=== PATIENT | male | born 1960 | race Caucasian/White ===

== ENCOUNTER 2019-02-27 09:40 | Outpatient (CLI) | payer OTHER ==
[2019-02-27] MEDS ORDERED: DIPH25CA61 PO (10:33)
== END 2019-02-27 23:59 | disposition home or self-care (01) ==
LOC: STAR 09:40
PROVIDERS: ATTEND Surgery
DX: Z02.9 Encounter for administrative examinations, unspecified (principal)

== ENCOUNTER 2019-03-15 05:57 | Inpatient (IN) | payer OTHER ==
[2019-02-27 10:35] VITALS: BP 127/78
[~2019-03-15] VITALS: Ht 185.4 cm; Wt 116.5 kg
[~2019-03-15 05:57] MED LIST: DIPH25CA61 PO
[2019-03-15] MEDS ORDERED: LACTATED RINGERS 1,000 ML IV SCH (06:34)
[2019-03-15] MEDS ORDERED: BUPIVACAINE/EPI 0.5% 1:200K ONE (06:47)
[2019-03-15 07:30] LABS: BASOPHILS # (AUTO) 0.02 x10^3/uL (0-0.1); BASOPHILS % (AUTO) 0 % (0-1); EOSINOPHILS # (AUTO) 0.32 x10^3/uL (0-0.4); EOSINOPHILS % (AUTO) 5 % (1-7); LYMPHOCYTES # (AUTO) 1.86 x10^3/uL (1-3.4); LYMPHOCYTES % (AUTO) 29 % (22-44); MD NO; MEAN CORPUSCULAR HEMOGLOBIN 31.1 pg (27.5-34.5); MEAN CORPUSCULAR HGB CONC 34.1 g/dL (33.2-36.2); MEAN CORPUSCULAR VOLUME 91.3 fL (81-97); MEAN PLATELET VOLUME 8.2 fL (7.4-10.4); MONOCYTES # (AUTO) 0.53 x10^3/uL (0.2-0.8); MONOCYTES % (AUTO) 8 % (2-9); NEUTROPHILS # (AUTO) 3.76 x10^3/uL (1.8-6.8); NEUTROPHILS % (AUTO) 58 % (42-75); PLATELET COUNT 228 x10^3/uL (130-400); RED BLOOD COUNT 5.44 x10^6/uL (4.38-5.82); RED CELL DISTRIBUTION WIDTH 13.5 % (9.4-14.8)
[2019-03-15 07:41] LABS: INTERNATIONAL NORMALIZED RATIO 1.04 (0.93-1.1); PROTHROMBIN TIME 10.9 Seconds (9.6-11.5)
[2019-03-15] MEDS ORDERED: FAMOTIDINE 20 MG TABLET PO STA (08:00)
[2019-03-15] MEDS ORDERED: GABAPENTIN 300 MG CAPSULE PO STA (08:00)
[2019-03-15] MEDS ORDERED: OXYcodone IR 5MG TABLET PO STA (08:00)
[2019-03-15] MEDS ORDERED: FENTANYL PF 250 MCG/5ML ONE (08:01)
[2019-03-15] MEDS ORDERED: MIDAZOLAM 1 MG/ML, 2ML ONE (08:02)
[2019-03-15] MEDS ORDERED: FAMOTIDINE 20 MG TABLET ONE (08:02)
[2019-03-15] MEDS ORDERED: OXYcodone IR 5MG TABLET ONE (08:02)
[2019-03-15] MEDS ORDERED: PROPOFOL 10 MG/ML, 20ML ONE ×2 (08:02)
[2019-03-15] MEDS ORDERED: GABAPENTIN 300 MG CAPSULE ONE (08:03)
[2019-03-15] MEDS ORDERED: ACETAMINOPHEN 500 MG TABLET ONE (08:07)
[2019-03-15] MEDS ORDERED: ACETAMINOPHEN 500 MG TABLET PO STA (08:08)
[2019-03-15] MEDS ORDERED: GLYCOPYRROLATE 0.2MG/1ML, 5ML ONE (08:12)
[2019-03-15] MEDS ORDERED: ONDANSETRON 2MG/ML, 2ML ONE (08:12)
[2019-03-15] MEDS ORDERED: DEXAMETHASONE 4 MG/ML, 1ML ONE (08:12)
[2019-03-15] MEDS ORDERED: SUCCINYLCHOLINE 20 MG/ML, 10ML ONE (08:12)
[2019-03-15] MEDS ORDERED: NEOSTIGMINE 1 MG/ML, 10ML ONE (08:12)
[2019-03-15] MEDS ORDERED: CEFAZOLIN 1,000 MG ONE (08:12)
[2019-03-15] MEDS ORDERED: ROCURONIUM 10 MG/ML,10ML ONE (08:12)
[2019-03-15] MEDS ORDERED: KETAMINE 10 MG/ML, 20ML ONE (08:50)
[2019-03-15] MEDS ORDERED: morphine SULFATE 10 MG/ML, 1ML ONE (09:41)
[2019-03-15] MEDS ORDERED: HYDROmorphone 1 MG/ML, 1ML VIAL ONE (10:11)
[2019-03-15] MEDS ORDERED: OXYcodone 5 MG/5 ML ORAL.SOL UDC ONE (10:11)
[2019-03-15] MEDS: FENTANYL PF 100 MCG/2ML IV PRN ×2 (10:15→10:50)
[2019-03-15] MEDS: HYDROmorphone 2 MG/ML, 1ML IVPush PRN ×6 (10:18→20:44)
[2019-03-15] MEDS ORDERED: FENTANYL PF 100 MCG/2ML ONE (10:19)
[2019-03-15] MEDS ORDERED: OXYcodone 5 MG/5 ML ORAL.SOL UDC PO PRN (10:30)
[2019-03-15] MEDS ORDERED: PROMETHAZINE 25 MG/ML, 1ML IV PRN (10:30)
[2019-03-15] MEDS ORDERED: DIAZEPAM 5 MG TABLET ONE (10:56)
[2019-03-15] MEDS ORDERED: DIAZEPAM 5 MG TABLET PO ONE (11:00)
[2019-03-15 11:45] VITALS: BP 134/85
[2019-03-15] MEDS ORDERED: HYDROmorphone 2 MG/ML, 1ML ONE (12:37)
[2019-03-15] MEDS ORDERED: morphine SULFATE 10 MG/ML, 1ML IV PRN (13:00)
[2019-03-15] MEDS ORDERED: OXYcodone/APAP 5/325MG TABLET PO PRN (13:00)
[2019-03-15 13:17] VITALS: BP 115/79
[2019-03-15] MEDS: POTASSIUM CHLORIDE 20 MEQ in LACTATED RINGERS 1,000 ML IV SCH (16:21)
[2019-03-15] MEDS: CEFAZOLIN PMX 1GM/50ML 50 ML IVPB SCH (16:22)
[2019-03-15] MEDS: DIAZEPAM 5 MG/ML, 2ML IV PRN ×2 (18:49→22:10)
[2019-03-15 19:41] VITALS: BP 147/94
[2019-03-15] MEDS: ONDANSETRON 2MG/ML, 2ML IV PRN (20:51)
[2019-03-15] MEDS: SODIUM CHLORIDE FLUSH 10ML SYR IVF SCH (21:00)
[2019-03-16] MEDS: HYDROmorphone 2 MG/ML, 1ML IVPush PRN ×2 (00:05→03:47)
[2019-03-16] MEDS: CEFAZOLIN PMX 1GM/50ML 50 ML IVPB SCH (00:12)
[2019-03-16] MEDS: POTASSIUM CHLORIDE 20 MEQ in LACTATED RINGERS 1,000 ML IV SCH ×3 (00:12→16:10)
[2019-03-16 00:28] VITALS: BP 145/94
[2019-03-16] MEDS: DIAZEPAM 5 MG/ML, 2ML IV PRN ×5 (01:26→12:53)
[2019-03-16] MEDS: ONDANSETRON 2MG/ML, 2ML IV PRN ×2 (03:38→10:03)
[2019-03-16 04:22] VITALS: BP 144/91
[2019-03-16 05:43] LABS: BASOPHILS # (AUTO) 0.01 x10^3/uL (0-0.1); BASOPHILS % (AUTO) 0 % (0-1); EOSINOPHILS % (AUTO) 0 % (1-7); LYMPHOCYTES # (AUTO) 0.88 x10^3/uL (1-3.4); LYMPHOCYTES % (AUTO) 7 % (22-44); MD NO; MEAN CORPUSCULAR HEMOGLOBIN 31.1 pg (27.5-34.5); MEAN CORPUSCULAR HGB CONC 33.3 g/dL (33.2-36.2); MEAN CORPUSCULAR VOLUME 93.5 fL (81-97); MEAN PLATELET VOLUME 8.3 fL (7.4-10.4); MONOCYTES # (AUTO) 0.94 x10^3/uL (0.2-0.8); MONOCYTES % (AUTO) 7 % (2-9); NEUTROPHILS # (AUTO) 10.95 x10^3/uL (1.8-6.8); NEUTROPHILS % (AUTO) 86 % (42-75); PLATELET COUNT 212 x10^3/uL (130-400); RED BLOOD COUNT 5.13 x10^6/uL (4.38-5.82); RED CELL DISTRIBUTION WIDTH 13.4 % (9.4-14.8)
[2019-03-16] MEDS: ENOXAPARIN 40 MG/0.4 ML SQ SCH (05:43)
[2019-03-16 05:47] LABS: ALANINE AMINOTRANSFERASE 40 U/L (12-78); ALBUMIN 3.2 g/dL (3.4-5.0); ANION GAP 5 mmol/L (5-15); CALCIUM 8.2 mg/dL (8.5-10.1); CHLORIDE 106 mmol/L (98-107); CREATININE 0.84 mg/dL (0.7-1.3)
[2019-03-16 05:49] LABS: ALKALINE PHOSPHATASE 55 U/L (45-117); BILIRUBIN,TOTAL 0.8 mg/dL (0.2-1.0); TOTAL PROTEIN 6.4 g/dL (6.4-8.2)
[2019-03-16 08:36] VITALS: BP 134/83
[2019-03-16] MEDS: SODIUM CHLORIDE FLUSH 10ML SYR IVF SCH ×2 (08:40→20:19)
[2019-03-16 14:54] VITALS: BP 138/91
[2019-03-16] MEDS ORDERED: MAGNESIUM HYDROXIDE 8%, 30ML UDC PO PRN (18:00)
[2019-03-16] MEDS ORDERED: DIAZEPAM 5 MG/ML, 2ML IV PRN (18:00)
[2019-03-16] MEDS ORDERED: DIAZEPAM 5 MG TABLET ONE (18:12)
[2019-03-16] MEDS: DIAZEPAM 5 MG TABLET PO PRN (18:15)
[2019-03-16 20:07] VITALS: BP 168/75
[2019-03-16] MEDS: DOCUSATE 100 MG CAPSULE PO SCH (20:17)
[2019-03-16] MEDS: HYDROcodone/APAP 5/325 TABLET PO PRN ×2 (20:17→21:43)
[2019-03-17] MEDS: POTASSIUM CHLORIDE 20 MEQ in LACTATED RINGERS 1,000 ML IV SCH ×2 (00:15→08:20)
[2019-03-17 00:35] VITALS: BP 147/91
[2019-03-17] MEDS: HYDROcodone/APAP 5/325 TABLET PO PRN ×3 (01:40→09:50)
[2019-03-17] MEDS: ENOXAPARIN 40 MG/0.4 ML SQ SCH (05:37)
[2019-03-17 07:14] VITALS: BP 129/83
[2019-03-17] MEDS: DOCUSATE 100 MG CAPSULE PO SCH (07:54)
[2019-03-17] MEDS: DIAZEPAM 5 MG TABLET PO PRN ×2 (07:54)
[2019-03-17] MEDS ORDERED: HYDR-3240 PO (08:33)
[2019-03-17] MEDS ORDERED: DIAZ5TAB PO (08:36)
== END 2019-03-17 10:15 | disposition home or self-care (01) | DRG 336 ==
LOC: OUT 05:57 → 4NOR 11:25 → OUT 11:39 → 4NOR 11:39 → DCLOUNGE 03-17 10:02
PROVIDERS: ADMIT Surgery; ATTEND Surgery
PROC: 0DNW0ZZ Release Peritoneum, Open Approach (ICD-10-PCS; 2019-03-15)
PROC: 0WUF0JZ Supplement Abdominal Wall with Synthetic Substitute, Open Approach (ICD-10-PCS; 2019-03-15)
PROC: 0WJP4ZZ Inspection of Gastrointestinal Tract, Percutaneous Endoscopic Approach (ICD-10-PCS; principal; 2019-03-15 07:30)
DX: K43.2 Incisional hernia without obstruction or gangrene (principal); E44.0 Moderate protein-calorie malnutrition; I10 Essential (primary) hypertension; M19.90 Unspecified osteoarthritis, unspecified site; E66.01 Morbid (severe) obesity due to excess calories; K66.0 Peritoneal adhesions (postprocedural) (postinfection); Z88.2 Allergy status to sulfonamides; Z82.49 Family history of ischemic heart disease and other diseases of the circulatory system; Z83.3 Family history of diabetes mellitus; Z80.9 Family history of malignant neoplasm, unspecified; Z68.33 Body mass index [BMI] 33.0-33.9, adult; Z86.718 Personal history of other venous thrombosis and embolism
CPT/HCPCS: 36415; J3490; 80053; 85025; 85610; G0378; J0690; J1100; J1170; J1650; J2250; J2405; J2704; J2710; J3010; J3360; J3480; C1781; J0330; J2270; J7120

== ENCOUNTER → 2019-05-17 | Outpatient (CLI) | payer OTHER ==
[~2019-05-17] MED LIST changes: +DIAZ5TAB PO; +HYDR-3240 PO; +None at this Time
== END | disposition home or self-care (01) ==
LOC: STAR 12:26
PROVIDERS: ATTEND Orthopaedic Surgery
DX: Z01.818 Encounter for other preprocedural examination (principal); M17.11 Unilateral primary osteoarthritis, right knee
CPT/HCPCS: 87081; 93005

== ENCOUNTER 2019-05-23 12:10 | Observation (INO) | payer OTHER ==
[~2019-05-23] VITALS: Ht 185.4 cm; Wt 120.6 kg
[2019-05-23] MEDS ORDERED: LACTATED RINGERS 1,000 ML IV SCH (12:23)
[2019-05-23] MEDS ORDERED: TRANEXAMIC ACID 100 MG/ML, 10ML ONE ×2 (12:29)
[2019-05-23] MEDS ORDERED: GABAPENTIN 300 MG CAPSULE PO ONE (12:30)
[2019-05-23] MEDS ORDERED: ACETAMINOPHEN 500 MG TABLET PO ONE (12:30)
[2019-05-23] MEDS ORDERED: ONDANSETRON ODT 8 MG PO ONE (12:30)
[2019-05-23 12:49] VITALS: BP 148/106
[2019-05-23] MEDS ORDERED: NEOSTIGMINE 1 MG/ML, 10ML ONE (12:58)
[2019-05-23] MEDS ORDERED: PROPOFOL 10 MG/ML, 20ML ONE (12:58)
[2019-05-23] MEDS ORDERED: ROCURONIUM 10 MG/ML,10ML ONE (12:58)
[2019-05-23] MEDS ORDERED: DEXAMETHASONE 4 MG/ML, 1ML ONE (12:58)
[2019-05-23] MEDS ORDERED: GLYCOPYRROLATE 0.2MG/1ML, 5ML ONE (12:58)
[2019-05-23] MEDS ORDERED: CEFAZOLIN 1,000 MG ONE (12:58)
[2019-05-23] MEDS ORDERED: FENTANYL PF 100 MCG/2ML ONE ×3 (13:10→14:43)
[2019-05-23] MEDS ORDERED: MIDAZOLAM 1 MG/ML, 2ML ONE (13:11)
[2019-05-23] MEDS ORDERED: FENTANYL PF 100 MCG/2ML IV PRN (14:00)
[2019-05-23] MEDS ORDERED: METOCLOPRAMIDE 5 MG/ML, 2ML IV PRN (14:00)
[2019-05-23] MEDS ORDERED: MEPERIDINE/PF 25MG/0.5ML IVPush PRN (14:00)
[2019-05-23] MEDS ORDERED: ONDANSETRON 2MG/ML, 2ML IV PRN (14:00)
[2019-05-23] MEDS ORDERED: LORazepam 2 MG/ML, 1ML IVPush PRN (14:00)
[2019-05-23] MEDS ORDERED: hydrALAzine 20 MG/ML, 1ML IV PRN (14:00)
[2019-05-23] MEDS ORDERED: HYDROmorphone 4MG TABLET PO PRN (14:00)
[2019-05-23] MEDS ORDERED: BUPIVACAINE/EPI 0.5% 1:200K ONE (14:23)
[2019-05-23] MEDS ORDERED: OXYcodone 5 MG/5 ML ORAL.SOL UDC ONE (15:10)
[2019-05-23] MEDS ORDERED: KETOROLAC 30 MG/1 ML ONE (15:10)
[2019-05-23] MEDS ORDERED: HYDROmorphone 2 MG/ML, 1ML ONE (15:10)
[2019-05-23] MEDS: HYDROmorphone 2 MG/ML, 1ML IVPush PRN ×4 (15:13→16:13)
[2019-05-23] MEDS ORDERED: KETOROLAC 30 MG/1 ML IVPush ONE (15:30)
[2019-05-23] MEDS ORDERED: OXYcodone 5 MG/5 ML ORAL.SOL UDC PO ONE (15:30)
[2019-05-23] MEDS ORDERED: MEPERIDINE/PF 25MG/ML,1ML ONE (16:15)
[2019-05-23] MEDS ORDERED: hydrALAzine 20 MG/ML, 1ML ONE (16:28)
[2019-05-23 17:15] VITALS: BP 149/98
[2019-05-23] MEDS ORDERED: DIPHENHYDRAMINE 25 MG CAPSULE PO PRN (18:30)
[2019-05-23] MEDS ORDERED: ONDANSETRON ODT 4 MG PO PRN (18:30)
[2019-05-23] MEDS ORDERED: MAGNESIUM HYDROXIDE 8%, 30ML UDC PO PRN (18:30)
[2019-05-23] MEDS ORDERED: ACETAMINOPHEN 500 MG TABLET PO SCH (18:30)
[2019-05-23] MEDS ORDERED: MORPHINE SULFATE 4 MG/ML, 1ML IVPush PRN (18:30)
[2019-05-23] MEDS ORDERED: OXYcodone IR 5MG TABLET PO PRN (19:00)
[2019-05-23 20:09] VITALS: BP 154/92
[2019-05-23] MEDS ORDERED: HYDROcodone/APAP 5/325 TABLET PO ONE (20:30)
[2019-05-23] MEDS ORDERED: SODIUM CHLORIDE FLUSH 10ML SYR IVF SCH (21:00)
[2019-05-23] MEDS ORDERED: CEFAZOLIN PMX 2GM/50ML 50 ML IVPB SCH (21:00)
[2019-05-23] MEDS ORDERED: DOCUSATE 100 MG CAPSULE PO SCH (21:00)
[2019-05-23] MEDS ORDERED: PREGABALIN 75 MG CAPSULE PO SCH (21:00)
[2019-05-23] MEDS ORDERED: KETOROLAC 30 MG/1 ML IVPush SCH (23:00)
[2019-05-24] MEDS ORDERED: RIVAROXABAN 10 MG TABLET PO SCH (06:00)
== END 2019-05-23 21:52 | disposition home or self-care (01) ==
LOC: OUT 12:10 → 4NOR 17:23 → OUT 17:24 → 4NOR 17:24
PROVIDERS: ADMIT Orthopaedic Surgery; ATTEND Orthopaedic Surgery
DX: M17.11 Unilateral primary osteoarthritis, right knee (principal); Z88.2 Allergy status to sulfonamides; Z88.5 Allergy status to narcotic agent; Z91.030 Bee allergy status
CPT/HCPCS: 27447; 73560; 96365; C1713; C1776; G0378; J0360; J0690; J1100; J1170; J1885; J2175; J2250; J2704; J2710; J3010; J7120; Q0162

== ENCOUNTER 2019-10-19 11:07 | Observation (INO) | payer OTHER ==
[~2019-10-19] VITALS: Ht 185.4 cm; Wt 133.3 kg
[~2019-10-19 11:07] MED LIST changes: +ACET-1600 PO; +NAPR220C2 PO
[2019-10-19] MEDS ORDERED: FENTANYL PF 250 MCG/5ML ONE ×2 (11:16→14:00)
[2019-10-19] MEDS ORDERED: MIDAZOLAM 1 MG/ML, 2ML ONE (11:16)
[2019-10-19 11:30] VITALS: BP 157/109
[2019-10-19] MEDS ORDERED: LACTATED RINGERS 1,000 ML IV SCH (11:43)
[2019-10-19] MEDS ORDERED: GABAPENTIN 300 MG CAPSULE PO ONE (12:00)
[2019-10-19] MEDS ORDERED: ACETAMINOPHEN 500 MG TABLET PO ONE (12:00)
[2019-10-19] MEDS ORDERED: SCOPOLAMINE PATCH, 1.5MG PATCH.TD72 TD ONE (12:00)
[2019-10-19] MEDS ORDERED: BUPIVACAINE/EPI 0.5% 1:200K ONE (12:33)
[2019-10-19] MEDS ORDERED: DEXAMETHASONE 4 MG/ML, 1ML ONE (13:00)
[2019-10-19] MEDS ORDERED: CEFAZOLIN 1,000 MG ONE (13:00)
[2019-10-19] MEDS ORDERED: ONDANSETRON 2MG/ML, 2ML ONE (13:00)
[2019-10-19] MEDS ORDERED: PROPOFOL 10 MG/ML, 20ML ONE (13:00)
[2019-10-19] MEDS ORDERED: SUCCINYLCHOLINE 20 MG/ML, 10ML ONE (13:00)
[2019-10-19] MEDS ORDERED: ALBUTEROL SULFATE 2.5 MG/3 ML NPPB PRN (13:30)
[2019-10-19] MEDS ORDERED: OXYcodone 5 MG/5 ML ORAL.SOL UDC PO PRN (13:30)
[2019-10-19] MEDS ORDERED: PROMETHAZINE 25 MG/ML, 1ML IV PRN (13:30)
[2019-10-19] MEDS ORDERED: LABETALOL 5MG/ML, 20ML IV PRN (13:30)
[2019-10-19] MEDS ORDERED: KETOROLAC 30 MG/1 ML IV PRN (13:30)
[2019-10-19] MEDS ORDERED: hydrALAzine 20 MG/ML, 1ML IV PRN (13:30)
[2019-10-19] MEDS ORDERED: MEPERIDINE/PF 25MG/0.5ML IVPush PRN (13:30)
[2019-10-19] MEDS ORDERED: ONDANSETRON 2MG/ML, 2ML IVPush PRN (13:30)
[2019-10-19] MEDS ORDERED: METOCLOPRAMIDE 5 MG/ML, 2ML IV PRN (13:30)
[2019-10-19] MEDS ORDERED: BUPIVACAINE/PF-EPI 0.5% 1:200K INFIL ONE (13:36)
[2019-10-19] MEDS ORDERED: OXYcodone 5 MG/5 ML ORAL.SOL UDC ONE (15:19)
[2019-10-19] MEDS ORDERED: FENTANYL PF 100 MCG/2ML ONE ×2 (15:19→15:44)
[2019-10-19] MEDS: FENTANYL PF 100 MCG/2ML IV PRN ×5 (15:27→16:00)
[2019-10-19] MEDS ORDERED: BISACODYL 10 MG SUPP PR PRN (15:30)
[2019-10-19] MEDS ORDERED: DIPHENHYDRAMINE 50 MG/ML, 1ML IVPush PRN (15:30)
[2019-10-19] MEDS ORDERED: MAGNESIUM HYDROXIDE 8%, 30ML UDC PO PRN (15:30)
[2019-10-19] MEDS ORDERED: PROMETHAZINE 25 MG/ML, 1ML IM PRN (15:30)
[2019-10-19] MEDS ORDERED: MORPHINE SULFATE 4 MG/ML, 1ML IVPush PRN (15:30)
[2019-10-19] MEDS ORDERED: ONDANSETRON 4 MG TABLET PO PRN (15:30)
[2019-10-19] MEDS: ACETAMINOPHEN 500 MG TABLET PO SCH ×2 (15:30→20:00)
[2019-10-19] MEDS ORDERED: DIPHENHYDRAMINE 25 MG CAPSULE PO PRN (15:30)
[2019-10-19] MEDS ORDERED: PROMETHAZINE 12.5 MG SUPP PR PRN (15:30)
[2019-10-19] MEDS ORDERED: KETOROLAC 30 MG/1 ML ONE (15:30)
[2019-10-19] MEDS ORDERED: ACETAMINOPHEN 500 MG TABLET PO PRN (15:30)
[2019-10-19] MEDS ORDERED: VANCOMYCIN PMX 1GM/200ML 200 ML IVPB ONE (15:30)
[2019-10-19] MEDS ORDERED: HYDROmorphone 1 MG/ML, 1ML VIAL ONE (15:44)
[2019-10-19] MEDS: HYDROmorphone 1 MG/ML, 1ML INJ IV PRN ×2 (16:09→16:26)
[2019-10-19 18:30] VITALS: BP 141/93
[2019-10-19] MEDS: OXYcodone IR 5MG TABLET PO PRN ×2 (18:38→22:30)
[2019-10-19] MEDS: DOCUSATE 100 MG CAPSULE PO SCH (20:00)
[2019-10-19 20:31] VITALS: BP 142/94
[2019-10-19] MEDS ORDERED: DIPHENHYDRAMINE 25 MG CAPSULE PO SCH (21:00)
[2019-10-19] MEDS: D5%-0.45% NACL 1,000 ML IV SCH (22:00)
[2019-10-20 02:00] VITALS: BP 136/81
[2019-10-20] MEDS: ACETAMINOPHEN 500 MG TABLET PO SCH ×2 (02:52→09:23)
[2019-10-20] MEDS: OXYcodone IR 5MG TABLET PO PRN ×2 (02:53→07:05)
[2019-10-20 04:00] VITALS: BP 127/80
[2019-10-20] MEDS ORDERED: RIVAROXABAN 10 MG TABLET PO SCH (06:00)
[2019-10-20] MEDS: D5%-0.45% NACL 1,000 ML IV SCH (07:07)
[2019-10-20 07:26] VITALS: BP 145/79
[2019-10-20] MEDS: DOCUSATE 100 MG CAPSULE PO SCH (09:00)
== END 2019-10-20 09:40 | disposition home or self-care (01) ==
LOC: OUT 11:07 → ORIP 15:09 → 4NE 17:13 → DCLOUNGE 10-20 09:31
PROVIDERS: ADMIT Orthopaedic Surgery; ATTEND Orthopaedic Surgery
DX: M17.12 Unilateral primary osteoarthritis, left knee (principal); Z88.2 Allergy status to sulfonamides; Z91.030 Bee allergy status; Z68.33 Body mass index [BMI] 33.0-33.9, adult; Z79.899 Other long term (current) drug therapy
CPT/HCPCS: 27447; 73560; 96365; 97161; C1713; C1776; G0378; J0330; J0690; J1100; J1170; J1885; J2250; J2405; J2704; J3010; J3370; J7120; Q0163